=== PATIENT | male | born 1960 | race Caucasian/White ===

== ENCOUNTER 2022-12-25 09:08 | Outpatient (CLI) | payer BC, OTHER ==
[2022-12-25 09:42] VITALS: BP 138/92
--- NOTE | 2022-12-25 09:42 | SLEEP CARE CONSULTATION ---
Information from patient questionnaire entered by Selina North. I have reviewed and concur with the information entered by Selina North. This document represents the service I personally performed and the decisions made by me, Bertha Mccartney MD, [facility]. History of Present Illness Service Date and Time: 12/25/2022 0908 Reason for Visit: New patient Chief Complaint: reports: Other (TRANSFER FROM [facility]) Usual bedtime: 10-1030 Time it takes to fall asleep: 5-10 Snores at night: Yes Observed to quit breathing while asleep: Yes Sleeps alone due to snoring: No Number of times waking at night: 1-2 Reasons for waking at night: reports: Pain Toss, Turn, or Twitch while sleeping: No Recalls having dreams: Yes Usually gets out of bed at: 630-7 Morning headache: No Sleepy or fatigued during the day: Yes Ever fallen asleep while driving: No Takes day naps: No Prior sleep studies: Yes Additional HPI information: I had the pleasure of seeing Mr. Brown today regarding obstructive sleep apnea- hypopnea. As you know, he is a 62 year old gentleman who was diagnosed with the sleep-disordered breathing at [facility] about 4 years ago. The study was a home sleep apnea test (HSAT). The report is not available. He was prescribed a CPAP device set at 8 14 cmH2O. He uses the [email or web address] Respironics DreamStation autoCPAP every night and all night. The compliance data show usage in 30 out of the past 30 nights, averaging 7.9 hours a night. The residual AHI is 3.0 and average air leak is 0 L/minute. He wears a full face mask. The machine came from [employer], but he is buying supplies online. He finds the treatment very beneficial. - Parasomnia Symptoms Ever been unable to move upon waking from sleep: No Walks in sleep: Yes Talks in sleep: Yes Ever acted out dreams in sleep: Yes Ever felt weak in the knees when startled or emotional: No Bothered by creepy, crawly, restless sensations in legs: No Problems with memory or concentration: Yes Subjective Initial [place] Sleepiness Scale score: 8 (12/25/22) Past Medical History Past Medical History: reports: Arthritis, Depression, Other (BLOOD CLOTS) Social History The patient's occupation is a RE. Patient is and lives in . Have you smoked in the past 12 months: No Alcohol use: No Caffeine use: Yes Caffeine amount and frequency: BIG GULP OR TWO DAILY Family History Family history of sleep disordered breathing: Yes Family Hx Sleep Apnea: Father: Snoring, Sibling: Snoring Allergies and Home Medications Known drug allergies: Yes Drug allergies reviewed: Yes Home medication list reviewed: Yes Review of Systems Cardiovascular: reports: high blood pressure, chest pain, leg or foot swelling Respiratory: denies: shortness of breath, wheeze, sputum production, chronic cough, other Gastrointestinal: reports: difficulty swallowing Urinary: denies: incontinence, frequency, urgency, impotence, other Neurological: reports: headaches Psychiatric: reports: depression Ear/Nose/Throat: reports: nasal congestion, sinus problems, nose bleeds, wisdom teeth removed Endocrine: denies: thyroid disease, history of goiter, sluggishness, too hot or cold, excessive thirst, increased appetite, increased urination, unexplained weakness, other Musculoskeletal: reports: joint pain, neck pain, back pain Immunologic: reports: sneezing. denies: rash, itching, allergies to food or environment, other Physical Exam Vital signs obtained and entered by: SELINA Gentile MA Blood Pressure: 138/92 (LEFT ARM) Cuff size: regular Heart Rate: 67 O2 Saturation: 98 Height: 6 ft Weight: 260 lb 12.8 oz Body Mass Index: 35.4 BMI Classification: Obese Neck circumference: 18.5 Mood/affect: Normal HEENT: No craniofacial malformation Nostrils: patent to airflow Turbinates: normal Septum: midline Mouth and throat: normal Soft palate: normal Hard palate: normal Uvula: normal Uvula visualization: 100% Mallampati Class I Tongue: normal in size Tonsils: small Chin and jaw: normal size and position Neck: normal w/o lymphadenopathy or thyromegaly Heart: regular rate and rhythm Lungs: clear bilaterally Extremities: 1+ edema Neurologic: intact Impression and Plan IMPRESSION: 1. Obstructive Sleep Apnea-Hypopnea Syndrome, as previously diagnosed. The patient is using his autoCPAP every night and all night. The current pressure setting appears effective and comfortable. He would like to keep buying supplies online and does not need any prescription today. He is awaiting a replacement machine from the principal quality engineer [employer]. Plan: 1. Continue with autoCPAP set at 8 14 cmH2O. 2. Try to lose weight. 3. Try to obtain his sleep study report from [facility]. 4. Return for follow up in a year or earlier if there is any problem. Continue with device pressure at (cmH2O): 8 - 14 cmH20 Counseling Topics: Weight control Follow up with Sleep Care in: 1 year Visit Type: In Office Time Spent with Patient (minutes): 15 Provider Statement: I spent 100% of the Face to Face Visit with the patient with greater than 50% spent counseling the patient and coordination of care.
== END 2022-12-25 09:09 | disposition home or self-care (01) ==
LOC: SC 09:08
PROVIDERS: ATTEND Internal Medicine Pulmonary Disease
DX: G47.33 Obstructive sleep apnea (adult) (pediatric) (principal); E66.9 Obesity, unspecified; Z68.35 Body mass index [BMI] 35.0-35.9, adult
CPT/HCPCS: 99202; 99212

== ENCOUNTER 2024-01-07 09:16 | Outpatient (CLI) | payer OTHER ==
--- NOTE | 2024-01-07 10:11 | SLEEP CARE CONSULTATION ---
Information from patient questionnaire entered by Selina North. I have reviewed and concur with the information entered by Selina North. This document represents the service I personally performed and the decisions made by me, Bertha Mccartney MD, [facility]. History of Present Illness Service Date and Time: 01/07/2024 0916 Reason for follow up: annual (LAST SEEN 12/2022) Equipment type: CPAP (DREAM STATION) Prior sleep studies: Yes HPI additional information: Mr. Brown was diagnosed at [facility] in [place] with obstructive sleep apnea-hypopnea syndrome and returns today for follow up of CPAP therapy. The patient purchased the device from [employer] and was fitted with a ResMed F20 full face mask. He uses the device nightly and all through the night. The compliance report shows that he uses the device 364 nights out of the past 365 nights, averaging 7.6 hours a night. He complains of no particular problem with the device such as soreness on the face, dry nose, epistaxis, nasal congestion or headache. He thinks that the pressure of 8 - 14 cmH2O is comfortable. On the CPAP therapy he notices improvement in his sleep quality, and that he wakes up feeling fresher in the morning and more awake/alert during the day. His notices no snore at all. [place] Sleepiness Scale score is 8. The average residual AHI is 3.2; and average time in large leak per day is 9 seconds a night. The 90th percentile pressure is 10.9 cmH2O. Sleep Study - Results Prior sleep studies: Yes CPAP Compliance Data - Data Reviewed with Patient Average duration of nightly device use: 7HRS 40MINS 1SEC Compliance rate %: 99.7 (01/02/23-01/01/24) Current pressure setting (cmH2O): 8-14 Average residual AHI: 3.2 Subjective Initial [place] Sleepiness Scale score: 8 (12/25/22) Current [place] Sleepiness Scale score: 8 (01/07/24) Allergies and Home Medications Drug allergies reviewed: Yes Home medication list reviewed: Yes Physical Exam Vital signs obtained and entered by: SELINA Gentile MA Blood Pressure: 160/92 (RIGHT ARM) Cuff size: regular Heart Rate: 66 O2 Saturation: 98 Height: 6 ft Weight: 262 lb Body Mass Index: 35.5 BMI Classification: Obese Impression and Plan IMPRESSION: 1. Obstructive Sleep Apnea-Hypopnea Syndrome, as previously diagnosed. The patient is using his autoCPAP every night and all night. The current pressure setting appears effective and comfortable. He would like to keep buying supplies online and does not need any prescription today. Plan: 1. Continue with autoCPAP set at 8 14 cmH2O. 2. Try a ResMed AirTouch F-20 full face mask. 3. Try to obtain his sleep study report from [facility]. 4. Try to lose weight. 5. Return for a follow up in a year or earlier if there is any problem. He will be eligible for a new machine then. Counseling Topics: Weight control Follow up with Sleep Care in: 1 year Follow up recommended for: Weight management Visit Type: In Office Time Spent with Patient (minutes): 15 Provider Statement: I spent 100% of the Face to Face Visit with the patient with greater than 50% spent counseling the patient and coordination of care.
[2024-01-07 10:18] VITALS: BP 160/92; O2SAT 98
== END 2024-01-07 09:17 | disposition home or self-care (01) ==
LOC: SC 09:16
PROVIDERS: ATTEND Internal Medicine Pulmonary Disease
DX: G47.33 Obstructive sleep apnea (adult) (pediatric) (principal); E66.9 Obesity, unspecified; Z68.35 Body mass index [BMI] 35.0-35.9, adult
CPT/HCPCS: 99212